=== PATIENT | male | born 1990 | race Caucasian/White ===

== ENCOUNTER → 2018-10-16 | Outpatient (CLI) | payer BC ==
[2018-10-16 12:51] LABS: HEMOGLOBIN 15.1 G/DL (13.3-17.7); RED CELL DISTRIBUTION WIDTH 12.9 % (10.0-14.5); WHITE BLOOD COUNT 11.6 10^3/uL (4.3-11.0)
[2018-10-16 12:52] LABS: MEAN PLATELET VOLUME 10.5 FL (7.4-10.4)
== END ==
LOC: LAB FS 12:26
PROVIDERS: ATTEND Family Medicine
DX: K92.1 Melena (principal)
CPT/HCPCS: 36415; 85027

== ENCOUNTER 2020-07-21 10:52 | Outpatient (RCR) | payer BC | END 2020-10-19 | disposition home or self-care (01) | LOC: LAB 10:52 | PROVIDERS: ATTEND Urology | DX: Z01.89 Encounter for other specified special examinations (principal); Z98.52 Vasectomy status | CPT/HCPCS: 89321 ==

== ENCOUNTER 2022-02-19 03:16 | Emergency (ER) | payer BC ==
[~2022-02-19] VITALS: Ht 175 cm; Wt 111.0 kg
[2022-02-19] MEDS ORDERED: ANTACID SUSP 30 ML UDC (MYLANTA) PO ONE (03:45)
[2022-02-19] MEDS ORDERED: LIDOCAINE 2% VISCOUS 15 ML UDC PO ONE (03:45)
[2022-02-19] MEDS ORDERED: LIDOCAINE 2% VISCOUS 15 ML UDC ONE (03:48)
[2022-02-19] MEDS ORDERED: ANTACID SUSP 30 ML UDC (MYLANTA) ONE (03:49)
[2022-02-19 03:50] LABS: BASOPHILS % (AUTO) 0 % (0-10); EOSINOPHILS # (AUTO) 0.3 10^3/uL (0.0-0.3); EOSINOPHILS % (AUTO) 3 % (0-10); HEMATOCRIT 43 % (40-54); HEMOGLOBIN 14.5 g/dL (13.3-17.7); LYMPHOCYTES # (AUTO) 1.8 10^3/uL (1.0-4.0); LYMPHOCYTES % (AUTO) 19 % (12-44); MEAN CORPUSCULAR HEMOGLOBIN 29 pg (25-34); MEAN CORPUSCULAR HGB CONC 34 g/dL (32-36); MEAN CORPUSCULAR VOLUME 86 fL (80-99); MEAN PLATELET VOLUME 10.3 fL (9.0-12.2); MONOCYTES % (AUTO) 11 % (0-12); NEUTROPHILS # (AUTO) 6.2 10^3/uL (1.8-7.8); NEUTROPHILS % (AUTO) 66 % (42-75); PLATELET COUNT 290 10^3/uL (130-400); WHITE BLOOD COUNT 9.5 10^3/uL (4.3-11.0)
--- NOTE | 2022-02-19 04:13 | ED Chest Pain ---
General Chief Complaint: Cardiac/General Problems Stated Complaint: CHEST PAIN Nursing Triage Note: Pt c/o center chest pain since 9pm yesterday. Reports no relief from tums. Pt reports he also vomitted yesterday morning. Denies cardiac hx. Source: patient Exam Limitations: no limitations History of Present Illness Date Seen by Provider: Feb 19, 2022 Time Seen by Provider: 03:29 Initial Comments 31-year-old male patient with history of anxiety complaining of nonexertional substernal aching pain that started at 2100 last night as a constant pain that getting worse with position. Patient rated his pain 2- 3/10 and states the pain getting worse with supine position. Patient denies radiation of pain, shortness of breath, diaphoresis, palpitation, paresthesia, nausea. Patient took Tums without improvement of his pain. Patient denies history of chest pain. Patient stated he had sore throat 5 days ago and diagnosed with tonsil stones at urgent care and treated with amoxicillin. Patient complaining of 1 episode of vomiting yesterday morning while he was at work and several episodes of diarrhea yesterday. Allergies and Home Medications Allergies Coded Allergies: No Known Allergies (Verified Allergy, Unknown, 02/19/22) Patient Home Medication List Home Medication List Reviewed: Yes Review of Systems Review of Systems Constitutional: see HPI EENTM: See HPI Respiratory: No Symptoms Reported Cardiovascular: See HPI Gastrointestinal: See HPI Genitourinary: No Symptoms Reported Musculoskeletal: no symptoms reported Skin: no symptoms reported Psychiatric/Neurological: See HPI Endocrine: No Symptoms Reported Hematologic/Lymphatic: No Symptoms Reported All Other Systems Reviewed Negative Unless Noted: Yes Past Crbgbqd-Spfcch-Ruyjjf Hx Patient Social History Tobacco Use?: No Use of E-Cig and/or Vaping dev: No Substance use?: No Alcohol Use?: No Pt feels they are or have been: No Immunizations Up To Date First/Initial COVID19 Vaccinat: Moderna Second COVID19 Vaccination Memo: Moderna Physical Exam Vital Signs Vital Signs - First Documented 02/19/22 03:31 Temp 36.9 Pulse 70 Resp 18 B/P (MAP) 142/101 (115) Pulse Ox 98 O2 Delivery Room Air Capillary Refill : Less Than 3 Seconds Height, Weight, BMI Height: '" Weight: lbs. oz. kg; 36.00 BMI Method: General Appearance: No Apparent Distress, WD/WN, Anxious HEENT: PERRL/EOMI, TMs Normal Neck: Full Range of Motion, Normal Inspection Respiratory: Chest Non Tender, Lungs Clear, Normal Breath Sounds, No Accessory Muscle Use, No Respiratory Distress Cardiovascular: Regular Rate, Rhythm, No Edema, No Gallop Gastrointestinal: Normal Bowel Sounds, No Organomegaly Extremity: Normal Capillary Refill, Normal Inspection Neurologic/Psychiatric: Alert, Oriented x3, No Motor/Sensory Deficits Skin: Normal Color, Warm/Dry Lymphatic: No Adenopathy Progress/Results/Core Measures Results/Orders Lab Results Laboratory Tests Test 02/19/22 03:30 Range/Units White Blood Count 9.5 4.3-11.0 10^3/uL Red Blood Count 5.02 4.30-5.52 10^6/uL Hemoglobin 14.5 13.3-17.7 g/dL Hematocrit 43 40-54 % Mean Corpuscular Volume 86 80-99 fL Mean Corpuscular Hemoglobin 29 25-34 pg Mean Corpuscular Hemoglobin Concent 34 32-36 g/dL Red Cell Distribution Width 13.0 10.0-14.5 % Platelet Count 290 130-400 10^3/uL Mean Platelet Volume 10.3 9.0-12.2 fL Immature Granulocyte % (Auto) 0 % Neutrophils (%) (Auto) 66 42-75 % Lymphocytes (%) (Auto) 19 12-44 % Monocytes (%) (Auto) 11 0-12 % Eosinophils (%) (Auto) 3 0-10 % Basophils (%) (Auto) 0 0-10 % Neutrophils # (Auto) 6.2 1.8-7.8 10^3/uL Lymphocytes # (Auto) 1.8 1.0-4.0 10^3/uL Monocytes # (Auto) 1.0 0.0-1.0 10^3/uL Eosinophils # (Auto) 0.3 0.0-0.3 10^3/uL Basophils # (Auto) 0.0 0.0-0.1 10^3/uL Immature Granulocyte # (Auto) 0.0 0.0-0.1 10^3/uL Sodium Level 138 135-145 MMOL/L Potassium Level 4.0 3.6-5.0 MMOL/L Chloride Level 105 98-107 MMOL/L Carbon Dioxide Level 22 21-32 MMOL/L Anion Gap 11 5-14 MMOL/L Blood Urea Nitrogen 14 7-18 MG/DL Creatinine 0.93 0.60-1.30 MG/DL Estimat Glomerular Filtration Rate 113 BUN/Creatinine Ratio 15 Glucose Level 113 H 70-105 MG/DL Calcium Level 9.0 8.5-10.1 MG/DL Corrected Calcium 8.7 8.5-10.1 MG/DL Total Bilirubin 0.6 0.1-1.0 MG/DL Aspartate Amino Transf (AST/SGOT) 16 5-34 U/L Alanine Aminotransferase (ALT/SGPT) 17 0-55 U/L Alkaline Phosphatase 102 40-136 U/L Troponin I < 0.30 <0.30 NG/ML Total Protein 6.7 6.4-8.2 GM/DL Albumin 4.4 3.2-4.5 GM/DL Lipase 32 8-78 U/L My Orders Orders - WALTER COLYE MD Cbc With Automated Diff (02/19/22 03:40) Chest 1 View Ap/Pa Only (02/19/22 03:40) Ekg Tracing (02/19/22 03:40) Comprehensive Metabolic Panel (02/19/22 03:40) Ed Iv/Invasive Line Start (02/19/22 03:40) Lipase (02/19/22 03:40) Troponin I Fs (02/19/22 03:40) Antacid Suspension (Mylanta Suspension (02/19/22 03:45) Lidocaine 2% Viscous 15 Ml (Xylocaine Vi (02/19/22 03:45) Lidocaine 2% Viscous 15 Ml (Xylocaine Vi (02/19/22 03:48) Antacid Suspension (Mylanta Suspension (02/19/22 03:49) Medications Given in ED Current Medications Medications Dose Ordered Sig/Kory Route Start Time Stop Time Status Last Admin Dose Admin Al Hydrox/Mg Hydrox/Simethicone 30 ml ONCE ONCE PO 02/19/22 03:45 02/19/22 03:46 DC 02/19/22 03:50 30 ML Lidocaine HCl 5 ml ONCE ONCE PO 02/19/22 03:45 02/19/22 03:46 DC 02/19/22 03:50 15 ML Vital Signs/I&O 02/19/22 03:31 Temp 36.9 Pulse 70 Resp 18 B/P (MAP) 142/101 (115) Pulse Ox 98 O2 Delivery Room Air Blood Pressure Mean: 115 Progress Progress Note : Progress Note Evaluation patient in ER showed 4-year-old male patient with SHAHLA score of 0 presented with complaining of substernal chest pain for about 6 hours as a mild pain without other symptoms. Patient had a diagnosis of recent tonsil infection and treated with amoxicillin. Patient complaining of several episodes of diarrhea and 1 episode of vomiting yesterday morning. Patient has unremarkable physical exam. CBC and CMP and troponin was unremarkable. Chest x-ray did not show acute finding. EKG did not show ST elevation. Patient treated with GI cocktail but he states his pain did not change. Patient did not want to have more pain medication and he stated he would take Tylenol at home. Patient inf ormed that the chest pain is most likely related to GI symptoms and side effect of amoxicillin. Patient did not want to have pain medication for home. Patient advised to follow-up with his primary care physician in 3 to 5 days and return to ER as needed. Initial ECG Impression Date: Feb 19, 2022 Initial ECG Impression Time: 03:25 Initial ECG Rate: 70 Comment EKG interpreted by me. EKG at 0 325 showed normal sinus rhythm at rate of 70 with multiple artifact, DE interval of 133 and QT interval of 392, possible right ventricular conduction delay, no acute ST and T wave elevation. EKG : EKG Time: 03:25 Departure Impression Primary Impression: Non-cardiac chest pain Additional Impression: Anxiety about health Disposition: 01 HOME, SELF-CARE Condition: Stable Departure-Patient Inst. Decision time for Depature: 04:22 Referrals: NO,LOCAL PHYSICIAN (PCP/Family) Primary Care Physician Patient Instructions: Chest Pain That Is Not Caused by the Heart (DC) Add. Discharge Instructions: Follow-up with your primary care physician in 3 to 5 days Return to ER as needed May take Tylenol or ibuprofen as needed for pain All discharge instructions reviewed with patient and/or family. Voiced understanding. WALTER COYLE MD Feb 19, 2022 04:13
[2022-02-19 04:14] LABS: BILIRUBIN,TOTAL 0.6 MG/DL (0.1-1.0); CREATININE SERUM 0.93 MG/DL (0.60-1.30); TOTAL PROTEIN 6.7 GM/DL (6.4-8.2)
[2022-02-19 04:15] LABS: ALBUMIN 4.4 GM/DL (3.2-4.5)
[2022-02-19 04:27] VITALS: BP 137/9
--- NOTE | 2022-02-19 06:04 | Diagnostic Imaging Report ---
EXAMINATION: Chest 1 view HISTORY: Chest pain COMPARISON: None available. FINDINGS: Heart size and pulmonary vasculature are normal. The lungs are clear without consolidation, pleural effusion, or pneumothorax. The osseous structures are intact. IMPRESSION: 1. No acute radiographic abnormality in the chest. Dictated by: Dictated on workstation # [id number]
== END 2022-02-19 04:27 | disposition home or self-care (01) ==
LOC: EDUNIT# 03:16 → ER FS 03:19
DX: R07.2 Precordial pain (principal); F41.1 Generalized anxiety disorder; Z28.310 Unvaccinated for COVID-19
CPT/HCPCS: 36415; 71045; 80053; 83690; 84484; 85025; 93005

== ENCOUNTER 2023-06-01 07:27 | Emergency (ER) | payer BC ==
[~2023-06-01] VITALS: Ht 175 cm; Wt 115.0 kg
[2023-06-01] MEDS ORDERED: ONDANSETRON INJECTION 4 MG/2 ML (SDV) IVP STA (07:38)
[2023-06-01] MEDS ORDERED: KETOROLAC INJ 15 MG/ML VIAL IVP STA ×2 (07:38→08:39)
[2023-06-01] MEDS ORDERED: NS IV 1000 ML 1,000 ML IV STA (07:38)
[2023-06-01 07:44] LABS: BASOPHILS # (AUTO) 0.1 10^3/uL (0.0-0.1); BASOPHILS % (AUTO) 1 % (0-10); EOSINOPHILS # (AUTO) 0.2 10^3/uL (0.0-0.3); EOSINOPHILS % (AUTO) 2 % (0-10); HEMATOCRIT 43 % (40-54); HEMOGLOBIN 14.2 g/dL (13.3-17.7); LYMPHOCYTES # (AUTO) 2.6 10^3/uL (1.0-4.0); LYMPHOCYTES % (AUTO) 22 % (12-44); MEAN CORPUSCULAR HEMOGLOBIN 29 pg (25-34); MEAN CORPUSCULAR HGB CONC 33 g/dL (32-36); MEAN CORPUSCULAR VOLUME 89 fL (80-99); MEAN PLATELET VOLUME 9.9 fL (9.0-12.2); MONOCYTES # (AUTO) 0.6 10^3/uL (0.0-1.0); MONOCYTES % (AUTO) 5 % (0-12); NEUTROPHILS % (AUTO) 70 % (42-75); PLATELET COUNT 311 10^3/uL (130-400); WHITE BLOOD COUNT 11.5 10^3/uL (4.3-11.0)
--- NOTE | 2023-06-01 07:44 | ED Abdominal Pain ---
General Chief Complaint: Abdominal/GI Problems Stated Complaint: ABD PAIN|RIGHT SIDE Nursing Triage Note: ARRIVED VIA AMB TO ROOM 06 WITH COMPLAINTS OF RIGHT MID/SIDE ABD PAIN STARTING AT 0400. PT ALSO COMPLAINS OF VOMITING X2. Source of Information: Patient History of Present Illness Date Seen by Provider: Jun 01, 2023 Time Seen by Provider: 07:31 Initial Comments 33-year-old male presenting with complaints of sudden onset of right flank pain. He states that he woke up at 4 AM with the pain. He has had 2 episodes of vomiting with the pain. He has not taken anything for the pain because of the nausea and vomiting. He had presented to urgent care and they had told him that they could not do anything for him and to go to the ER. He states he does have a history of kidney stone on the left side but that it was causing him pain more in his back and this felt different. He denied any fever, chills, pain with urination. He has had no change in his bowels. Timing/Duration: 1-3 Hours Severity/Quality: Severe, Sharp, Stabbing Location: Flank (Right side of his flank) Activities at Onset: Sleeping Modifying Factors: Worsens With Movement, Worsens With Palpation Associated Symptoms: No Back Pain, No Chest Pain, No Diaphoresis, No Fever/Chills, No Fatigue, No Headache, No Heartburn; Nausea/Vomiting; No Rash, No Shortness of Air, No Swelling/Mass in Abdomen, No Syncope, No Weakness Allergies and Home Medications Allergies Coded Allergies: No Known Allergies (Verified Allergy, Unknown, 02/19/22) Patient Home Medication List Home Medication List Reviewed: Yes Hydrocodone/Acetaminophen (Hydrocodone-Acetamin 5-325 mg) 5 Mg-325 Mg Tablet, 1 TAB PO Q4H PRN for PAIN SEVERE Prescribed by: MADI CASTANONRT on 06/01/23 0839 Ondansetron (Ondansetron Odt) 4 Mg Tab.rapdis, 4 MG PO Q6H PRN for NAUSEA/VOMITING Prescribed by: MADI CASTANONRT on 06/01/23 08 Tamsulosin HCl (Flomax) 0.4 Mg Cap, 0.4 MG PO DAILY Prescribed by: MADI CASTANONRT on 06/01/23837 Review of Systems Review of Systems Constitutional: No chills, No fever EENTM: No Symptoms Reported Respiratory: No Symptoms Reported Cardiovascular: No Symptoms Reported Gastrointestinal: See HPI Genitourinary: See HPI Musculoskeletal: no symptoms reported Skin: no symptoms reported Psychiatric/Neurological: No Symptoms Reported Past Iedkgba-Ikkrdi-Vlergn Hx Patient Social History Tobacco Use?: No Substance use?: No Alcohol Use?: No Immunizations Up To Date First/Initial COVID19 Vaccinat: Moderna Second COVID19 Vaccination Memo: Moderna Past Medical History Surgery/Hospitalization HX: Kidney stones, depression/anxiety Physical Exam Vital Signs Vital Signs - First Documented 06/01/23 07:30 Temp 36.5 Pulse 78 Resp 16 B/P (MAP) 175/111 (132) Pulse Ox 99 O2 Delivery Room Air Capillary Refill : Height/Weight/BMI Height: '" Weight: lbs. oz. kg; 37.00 BMI Method: General Appearance: WD/WN, no apparent distress, obese Respiratory: chest non-tender, lungs clear, normal breath sounds Cardiovascular: normal peripheral pulses, regular rate, rhythm Gastrointestinal: normal bowel sounds, non tender, soft, no pulsatile mass, other (Complains of pain to the right flank but not tender to palpation) Rectal: deferred Extremities: normal range of motion, non-tender, normal capillary refill Back: no CVA tenderness Neurologic/Psychiatric: alert, oriented x 3 Skin: normal color, warm/dry Progress/Results/Core Measures Results/Orders Lab Results Laboratory Tests Test 06/01/23 07:32 06/01/23 07:40 Range/Units Urine Color YELLOW Urine Clarity SL CLOUDY Urine pH 5.5 5-9 Urine Specific [place] >=1.030 1.016-1.022 Urine Protein 1+ H NEGATIVE Urine Glucose (UA) NEGATIVE NEGATIVE Urine Ketones NEGATIVE NEGATIVE Urine Nitrite NEGATIVE NEGATIVE Urine Bilirubin 1+ H NEGATIVE Urine Urobilinogen 0.2 < = 1.0 MG/DL Urine Leukocyte Esterase NEGATIVE NEGATIVE Urine RBC (Auto) 3+ H NEGATIVE Urine RBC 10-25 H /HPF Urine WBC NONE /HPF Urine Squamous Epithelial Cells NONE /HPF Urine Crystals NONE /LPF Urine Bacteria NEGATIVE /HPF Urine Casts NONE /LPF Urine Mucus SMALL H /LPF Urine Culture Indicated NO White Blood Count 11.5 H 4.3-11.0 10^3/uL Red Blood Count 4.87 4.30-5.52 10^6/uL Hemoglobin 14.2 13.3-17.7 g/dL Hematocrit 43 40-54 % Mean Corpuscular Volume 89 80-99 fL Mean Corpuscular Hemoglobin 29 25-34 pg Mean Corpuscular Hemoglobin Concent 33 32-36 g/dL Red Cell Distribution Width 13.6 10.0-14.5 % Platelet Count 311 130-400 10^3/uL Mean Platelet Volume 9.9 9.0-12.2 fL Immature Granulocyte % (Auto) 1 % Neutrophils (%) (Auto) 70 42-75 % Lymphocytes (%) (Auto) 22 12-44 % Monocytes (%) (Auto) 5 0-12 % Eosinophils (%) (Auto) 2 0-10 % Basophils (%) (Auto) 1 0-10 % Neutrophils # (Auto) 8.0 H 1.8-7.8 10^3/uL Lymphocytes # (Auto) 2.6 1.0-4.0 10^3/uL Monocytes # (Auto) 0.6 0.0-1.0 10^3/uL Eosinophils # (Auto) 0.2 0.0-0.3 10^3/uL Basophils # (Auto) 0.1 0.0-0.1 10^3/uL Immature Granulocyte # (Auto) 0.1 0.0-0.1 10^3/uL Sodium Level 139 135-145 MMOL/L Potassium Level 4.3 3.6-5.0 MMOL/L Chloride Level 104 98-107 MMOL/L Carbon Dioxide Level 23 21-32 MMOL/L Anion Gap 12 5-14 MMOL/L Blood Urea Nitrogen 15 7-18 MG/DL Creatinine 1.20 0.60-1.30 MG/DL Estimat Glomerular Filtration Rate 82 BUN/Creatinine Ratio 13 Glucose Level 142 H 70-105 MG/DL Calcium Level 9.3 8.5-10.1 MG/DL Corrected Calcium 8.5-10.1 MG/DL Total Bilirubin 0.4 0.1-1.0 MG/DL Aspartate Amino Transf (AST/SGOT) 19 5-34 U/L Alanine Aminotransferase (ALT/SGPT) 19 0-55 U/L Alkaline Phosphatase 98 40-136 U/L Total Protein 7.2 6.4-8.2 GM/DL Albumin 4.6 H 3.2-4.5 GM/DL Lipase 25 8-78 U/L My Orders Orders - ENYART,MADI E MD Comprehensive Metabolic Panel (06/01/23 07:38) Lipase (06/01/23 07:38) Ua Culture If Indicated (06/01/23 07:38) Ed Iv/Invasive Line Start (06/01/23 07:38) Cbc And Automated Diff (06/01/23 07:38) Ct Abdomen/Pelvis Wo (06/01/23 07:38) Ns Iv 1000 Ml (Ns Iv 1000 Ml) (06/01/23 07:38) Ondansetron Injection (Ondansetron Inj (06/01/23 07:38) Ketorolac Injection (Ketorolac Injection (06/01/23 07:38) Iohexol Injection (Omnipaque 350 Mg/Ml 1 (06/01/23 07:45) Received Contrast (Hold Metformin- Contr (06/01/23 07:45) Sodium Chloride Flush (Catheter Flush Sy (06/01/23 07:45) Ns (Ivpb) 100 Ml (Sodium Chloride 0.9% 1 (06/01/23 07:45) Tamsulosin Capsule (Flomax Capsule) (06/01/23 08:39) Ketorolac Injection (Ketorolac Injection (06/01/23 08:39) Strain Urine (06/01/23 08:39) Vital Signs/I&O 06/01/23 06/01/23 07:30 08:59 Temp 36.5 Pulse 78 87 Resp 16 16 B/P (MAP) 175/111 (132) 132/89 Pulse Ox 99 98 O2 Delivery Room Air Blood Pressure Mean: 132 Progress Progress Note #1: Progress Note Differential diagnosis includes kidney stone, colitis, diverticulitis, muscle strain, gastroenteritis, pyelonephritis, cystitis. Establish peripheral IV access and send labs for complete blood count, comprehensive metabolic profile, lipase. Urinalysis to look for signs of pr ovide her urine infection. CT scan of the abdomen and pelvis without IV contrast to look for possible kidney stone or pathology to be causing sudden onset of right flank pain. Administer normal saline 1 L IV fluid bolus for hydration, Toradol 15 mg IV for pain, Zofran 4 mg IV for nausea and vomiting. Progress Note #2: Time: 08:14 Progress Note Complete blood count does not show an elevated white blood cell count for infection. The urinalysis was concentrated with specific gravity greater than 1.030 and had 3+ blood present. On my personal review and interpretation of the CT scan of the abdomen pelvis without IV contrast he had a 3 mm kidney stone with hydroureter ureter and mild hydronephrosis on the right side. The kidney stone is at the UVJ. Patient's pain was improved with treatment. His blood pressure had improved to 139/84 worse initially it was 175/111. Awaiting comprehensive metabolic profile and official reading on the CT. Progress Note #3: Time: 08:32 Progress Note Radiologist reading on the CT scan of the abdomen pelvis without IV contrast showed a 3 mm stone with mild hydroureter on the right side. The stone is at the UVJ. He also had small bilateral fat containing inguinal hernias. There are some small stones in both kidneys. His comprehensive metabolic profile had a creatinine of 1.2 and mild elevation of his glucose to go along with having pain. He did not have any elevation of his liver enzymes were basic electrolytes otherwise. I reviewed with the patient the findings and will continue with the plan of using Flomax as well as straining his urine. Continue with some hydrocodone for severe pain and Zofran to help keep his stomach settled. He states that he had seen Dr. Sullivan out of [place] previously when he had to have a kidney stone broken up. Advised that he could check back with Dr. Sullivan or Dr. Han will be starting to see patients in [place] in June. Diagnostic Imaging Diagonstic Imaging: CT Plain Films/CT/US/NM/MRI: abdomen, pelvis Comments NAME: REMEDIOS BECKHAM [facility] REC#: [id number] PT STATUS: REG ER : 1990 PHYSICIAN: MADI SUAZO MD ADMIT DATE: 06/01/23/ER FS Draft Date of Exam:06/01/23 CT ABDOMEN/PELVIS WO PROCEDURE: CT abdomen and pelvis without contrast. TECHNIQUE: Multiple contiguous axial images were obtained through the abdomen and pelvis without the use of intravenous contrast. Auto Exposure Controls were utilized during the CT exam to meet ALARA standards for radiation dose reduction. INDICATION: Right-sided abdominal pain, renal stones COMPARISON: None available FINDINGS: The visualized lung bases are clear. The unenhanced liver and spleen are unremarkable. The adrenal glands are unremarkable. The pancreas is unremarkable. The gallbladder is unremarkable. Punctate 1 mm nonobstructing left renal calculus. Otherwise, the left kidney and left ureter are unremarkable. A 3 mm calculus is identified within the right ureterovesicular junction resulting in mild right hydroureteronephrosis. Additional small calculus noted within the inferior pole of the right kidney. No aneurysmal dilatation of the abdominal aorta. Tiny fat-containing umbilical hernia. The urinary bladder is decompressed, therefore not well evaluated. Small fat-containing bilateral inguinal hernias. Surgical clips within the scrotum/inguinal canals bilaterally. Prior appendectomy. No bowel obstruction or pneumatosis. No significant adenopathy, free air, or free fluid within the abdomen or pelvis. No acute osseous abnormality. IMPRESSION: 3 mm stone within the right ureterovesicular junction resulting in mild right hydroureteronephrosis. Tiny bilateral renal calculi, nonobstructing on the left. Small fat-containing bilateral inguinal hernias and umbilical hernia. Additional findings as above. Dictated on workstation # [id number] Dict: 06/01/23810 Trans: 06/01/23823 [facility] [id number] Interpreted by: SUSANA TINEO MD Electronically signed by: Reviewed: Reviewed by Me Departure Impression Primary Impression: Right distal ureteral calculus Additional Impressions: Acute right flank pain Renal colic on right side Disposition: 01 HOME, SELF-CARE Condition: Improved Departure-Patient Inst. Decision time for Depature: 08:36 Referrals: AUNDREA CASPER MD, J MARK MD NO,LOCAL PHYSICIAN (PCP) Primary Care Physician Patient Instructions: Flank Pain ED, Kidney Stone, Adult ED, Kidney Stone Diet, How to Strain Your Urine Add. Discharge Instructions: Try to stay well-hydrated and keep sipping on fluids to help flush out the kidney stone. Use the nausea medicine to help keep your stomach settled. Take the pain medicine to help keep your pain down to a tolerable level. Strain your urine to see when the stone may pass. If having contined pain or more problems may check back with Primary care or see Urologist. Dr. Han is a Urologist that will see patients in [place] starting in June. You may also check back with Dr. Sullivan from [facility] out of [place]. He does come to [place] to see patients as well and you may call his office at [phone] All discharge instructions reviewed with patient and/or family. Voiced understanding. Scripts Hydrocodone/Acetaminophen (Hydrocodone-Acetamin 5-325 mg) 5 Mg-325 Mg Tablet 1 TAB PO Q4H PRN for PAIN SEVERE for 3 Days, #18 TAB 0 Refills Prov: MADI SUAZO MD 06/01/23 Ondansetron (Ondansetron Odt) 4 Mg Tab.rapdis 4 MG PO Q6H PRN for NAUSEA/VOMITING for 3 Days, #12 TAB 0 Refills Prov: MADI SUAZO MD 06/01/23 Tamsulosin HCl (Flomax) 0.4 Mg Cap 0.4 MG PO DAILY for renal colic for 5 Days, #5 CAP 0 Refills Prov: MADI SUAZO MD 06/01/23 MADI SUAZO MD Jun 01, 2023 07:44
[2023-06-01 07:45] LABS: CLARITY,URINE SL CLOUDY; COLOR,URINE YELLOW; GLUCOSE, URINE (UA) NEGATIVE (NEGATIVE); KETONES,URINE NEGATIVE (NEGATIVE); LEUKOCYTE ESTERASE ,URINE NEGATIVE (NEGATIVE); NITRITE,URINE NEGATIVE (NEGATIVE); PH,URINE 5.5 (5-9); PROTEIN,URINE 1+ (NEGATIVE)
[2023-06-01] MEDS ORDERED: NS 100 ML (IVPB) BAG IV ONE (07:45)
[2023-06-01] MEDS ORDERED: IOHEXOL 350 MG/ML 100 ML (OMNIPAQUE 350) VIAL IV ONE (07:45)
[2023-06-01] MEDS ORDERED: HOLD METFORMIN - RECEIVED CONTRAST 20 ML VIAL IV SCH (07:45)
[2023-06-01] MEDS ORDERED: CATHETER FLUSH 10 ML SYR IV PRN (07:45)
[2023-06-01 08:05] LABS: BACTERIA,URINE NEGATIVE /HPF; BILIRUBIN,URINE 1+ (NEGATIVE)
[2023-06-01 08:14] LABS: POTASSIUM 4.3 MMOL/L (3.6-5.0); SODIUM 139 MMOL/L (135-145)
[2023-06-01 08:15] LABS: ALANINE AMINOTRANSFERASE 19 U/L (0-55); ALBUMIN 4.6 GM/DL (3.2-4.5); ALKALINE PHOSPHATASE 98 U/L (40-136); BILIRUBIN,TOTAL 0.4 MG/DL (0.1-1.0); BUN/CREATININE RATIO 13; CALCIUM 9.3 MG/DL (8.5-10.1); CARBON DIOXIDE 23 MMOL/L (21-32); CHLORIDE 104 MMOL/L (98-107); GFR ESTIMATED 82; GLUCOSE 142 MG/DL (70-105); TOTAL PROTEIN 7.2 GM/DL (6.4-8.2)
[2023-06-01 08:21] LABS: LIPASE 25 U/L (8-78)
--- NOTE | 2023-06-01 08:25 | Diagnostic Imaging Report ---
PROCEDURE: CT abdomen and pelvis without contrast. TECHNIQUE: Multiple contiguous axial images were obtained through the abdomen and pelvis without the use of intravenous contrast. Auto Exposure Controls were utilized during the CT exam to meet ALARA standards for radiation dose reduction. INDICATION: Right-sided abdominal pain, renal stones COMPARISON: None available FINDINGS: The visualized lung bases are clear. The unenhanced liver and spleen are unremarkable. The adrenal glands are unremarkable. The pancreas is unremarkable. The gallbladder is unremarkable. Punctate 1 mm nonobstructing left renal calculus. Otherwise, the left kidney and left ureter are unremarkable. A 3 mm calculus is identified within the right ureterovesicular junction resulting in mild right hydroureteronephrosis. Additional small calculus noted within the inferior pole of the right kidney. No aneurysmal dilatation of the abdominal aorta. Tiny fat-containing umbilical hernia. The urinary bladder is decompressed, therefore not well evaluated. Small fat-containing bilateral inguinal hernias. Surgical clips within the scrotum/inguinal canals bilaterally. Prior appendectomy. No bowel obstruction or pneumatosis. No significant adenopathy, free air, or free fluid within the abdomen or pelvis. No acute osseous abnormality. IMPRESSION: 3 mm stone within the right ureterovesicular junction resulting in mild right hydroureteronephrosis. Tiny bilateral renal calculi, nonobstructing on the left. Small fat-containing bilateral inguinal hernias and umbilical hernia. Additional findings as above. Dictated by: Dictated on workstation # [id number]
[2023-06-01] MEDS ORDERED: ACHD5005 PO (08:38)
[2023-06-01] MEDS ORDERED: TMSL.4C PO (08:38)
[2023-06-01] MEDS ORDERED: ONDA4TAB11 PO (08:38)
[2023-06-01] MEDS ORDERED: TAMSULOSIN 0.4 MG (FLOMAX) CAP PO STA (08:39)
[2023-06-01 08:59] VITALS: BP 132/89
== END 2023-06-01 08:59 | disposition home or self-care (01) ==
LOC: EDUNIT# 07:27 → ER FS 07:29
DX: N13.2 Hydronephrosis with renal and ureteral calculous obstruction (principal)
CPT/HCPCS: 36415; 74176; 80053; 81000; 83690; 85025